=== PATIENT | female | born 2000 | race Caucasian/White ===

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

== ENCOUNTER 2019-03-11 09:06 | Emergency (ER) | payer BC ==
[2019-03-11 09:11] VITALS: BP 117/74; PULSE 81; TEMP 97.8; BMI 21.5
--- NOTE | 2019-03-11 09:35 | PDOC ---
History of Present Illness - General Chief Complaint: Injury Stated Complaint: LF ANKLE INJURY Time Seen by Provider: 03/11/19 09:15 - History of Present Illness Initial Comments: Ms. Ramsay is a 18 y/o female with not reported PMHx, here today for the chief complaint of right ankle pain. Patient reports that she inverted her ankle while playing basketball at school around 7:00pm last night. Patient was unable to bear weight immediately after the injury and has still not been able to bear weight upon presentation. Patient rested her foot last night, elevating and icing the affected area with no alleviation. Patient reports taking Tylenol last night and Motrin 600 mg around 9:00am today for pain. Patient denies any numbness, tingling, or loss of sensation in her foot. Patient denies any CP, SOB , or headache. Past History - Past Medical History Allergies/Adverse Reactions: Allergies Allergy/AdvReac Type Severity Reaction Status Date / Time No Known Allergies Allergy Verified 03/11/19 09:08 Home Medications: Ambulatory Orders NK [No Known Home Medication] 07/13/14 Anemia: No Asthma: (REACTIVE AIRWAY DISEASE-USES INHALER RARELY-LAST USE MANY MONTHS AGO) Cancer: No Cardiac Disorders: No CVA: No COPD: No CHF: No DVT: No Dementia: No Diabetes: No GI Disorders: No Disorders: No HTN: No Hypercholesterolemia: No Liver Disease: No Seizures: No Thyroid Disease: No - Immunization History Immunization Up to Date: Yes - Psycho Social/Smoking Cessation Hx Smoking History: Never smoked Have you smoked in the past 12 months: No Hx Alcohol Use: No Drug/Substance Use Hx: No Substance Use Type: None Review of Systems - Review of Systems Comments:: GENERAL/CONSTITUTIONAL: No fever or chills. No weakness._ HEAD, EYES, EARS, NOSE AND THROAT: No change in vision. No change in hearing. No sore throat._ CARDIOVASCULAR: No chest pain or shortness of breath_ RESPIRATORY: Denies cough, hemoptysis_ GASTROINTESTINAL: No nausea, vomiting, diarrhea or constipation._ GENITOURINARY: No dysuria, frequency, or change in urination._ MUSCULOSKELETAL: Reports right ankle pain. SKIN: No rash_ NEUROLOGIC: No headache, vertigo, loss of consciousness, or change in strength/ sensation._ ENDOCRINE: No increased thirst. No abnormal weight change_ HEMATOLOGIC/LYMPHATIC: No anemia, easy bleeding, or history of blood clots._ ALLERGIC/IMMUNOLOGIC: No hives or skin allergy._ *Physical Exam - Vital Signs Last Vital Signs Temp Pulse Resp BP Pulse Ox 97.8 F 81 18 117/74 98 03/11/19 09:07 03/11/19 09:07 03/11/19 09:07 03/11/19 09:07 03/11/19 09:07 - Physical Exam Comments: GENERAL: Awake, alert, and oriented to person/place/time, in no acute distress_ HEAD: No signs of trauma, normocephalic, atraumatic _ EYES: PERRLA, EOMI, sclera anicteric, conjunctiva clear_ ENT: Hearing grossly normal, nares patent, oropharynx clear without exudates. No uvular deviation. Moist mucosa_ NECK: Normal ROM, supple, no lymphadenopathy, JVD, or masses_ LUNGS: No distress, speaks in full sentences, clear to auscultation bilaterally _ HEART: Regular rate and rhythm, normal S1 and S2, no murmurs appreciated, peripheral pulses normal and equal bilaterally._ ABDOMEN: Soft, nontender, normoactive bowel sounds. No guarding, no rebound. No masses_ EXTREMITIES: Right/Left Upper Extremities: Normal inspection, Normal range of motion, no edema. No clubbing or cyanosis_ RLE: Inspection: No erythema. Positive ecchymosis around ankle. TTP medial and lateral malleolus. No midfoot tenderness. Difficulty bearing weight. Swollen. No open wounds. Compartments soft and compressible, pain within proportion, no pain to passive stretch Knee stable to anterior/posterior drawer and varus/valgus stress Sensation: SPLT DP, SP, Tib, Alvin, Saph Motor: 5/5 EHL, 5/5 FHL, 5/5 TA, 5/5GS, 5/5 Quad, 5/5 Ham Vascular: 2+ DP/PT, all toes BCR <2 sec LLE: Inspection: No erythema or ecchymosis. No tenderness, no obvious abnormalities, no open wounds. Compartments soft and compressible, pain within proportion, no pain to passive stretch Knee stable to anterior/posterior drawer and varus/valgus stress Sensation: SPLT DP, SP, Tib, Alvin, Saph Motor: 5/5 EHL, 5/5 FHL, 5/5 TA, 5/5GS, 5/5 Quad, 5/5 Ham Vascular: 2+ DP/PT, all toes BCR <2 sec NEUROLOGICAL: Cranial nerves II through XII grossly intact. Normal speech, normal gait, no focal sensorimotor deficits _ SKIN: Warm, Dry, normal turgor, no rashes or lesions noted_ Medical Decision Making - Medical Decision Making 18F with no significant PMH presenting s/p fall and right ankle pain and swelling during basketball practice. Denies LOC. Denies head trauma. XR right ankle shows no fracture. Plan to d/c home with instructions for right ankle sprain. F/u PCP, ortho as needed. Discharge - Discharge Information Problems reviewed: Yes Clinical Impression/Diagnosis: Ankle sprain Qualifiers: Encounter type: initial encounter Involved ligament of ankle: unspecified ligament Laterality: right Qualified Code(s): S93.401A - Sprain of unspecified ligament of right ankle, initial encounter Condition: Stable Disposition: HOME - Admission No - Follow up/Referral Referrals: Simba Huizar MD [Primary Care Provider] - Dennis Ghotra DO [Staff Physician] - - Patient Discharge Instructions Additional Instructions: Please rest, ice, compress, and elevate the right ankle. Please keep ankle in the soft cast. Please take Motrin as needed for pain control (follow instructions on the package). Please make a follow up appointment with your primary care physician as needed. Please make a follow up appointment with an orthopedist (referral included here) . If you experience any new, worsening, or concerning symptoms, please return to the emergency department. - Post Discharge Activity Work/Back to School Note: Back to School
--- NOTE | 2019-03-11 09:58 | PDOC ---
Attending Attestation - Resident Resident Name: Pablo Luevano - ED Attending Attestation I have performed the following: I have examined & evaluated the patient, The case was reviewed & discussed with the resident, I agree w/resident's findings & plan - HPI HPI: 03/11/19 09:58 Ms. Ramsay is a 18 y/o female p/w right ankle pain. Patient reports that she inverted her ankle while playing basketball at school around 7:00pm last night. Patient was unable to bear weight immediately after the injury and has still not been able to bear weight upon presentation. has been elevating and icing the affected area with no alleviation. Patient reports taking Tylenol last night and Motrin 600 mg around 9:00am today for pain. Patient denies any numbness, tingling, or loss of sensation in her foot. denies head injury or LOC. 03/11/19 09:58 - Physicial Exam PE: 03/11/19 10:04 No acute distress, well-appearing, no proximal right fibular tenderness, right lateral malleolus and foot with ecchymosis swelling and tenderness right at the lateral malleolus. Neurovascularly intact, 5/5 plantar and dorsiflexion. Sensation intact over the L5 and S1 distribution of her foot and ankle. - Medical Decision Making 03/11/19 09:58 X-ray of the ankle is negative for any acute fracture, no swelling intact bones and soft tissues. Will provide Ra wrapping and Aircast, crutches to assist with ambulation. This most likely an ankle sprain from her injury pattern. Follow-up with orthopedics. Referral to be given. May take [id number] Tylenol/Motrin as needed for the pain control. 03/11/19 10:05
== END 2019-03-11 10:30 | disposition home or self-care (01) ==
LOC: JER 09:06
DX: S93.401A Sprain of unspecified ligament of right ankle, initial encounter (principal); X58.XXXA Exposure to other specified factors, initial encounter; Y93.67 Activity, basketball; Y92.89 Other specified places as the place of occurrence of the external cause; J45.909 Unspecified asthma, uncomplicated
CPT/HCPCS: 73610-TC-RT-FY; 99281-25